=== PATIENT | female | born 1985 | race Caucasian/White ===

== ENCOUNTER → 2018-08-13 08:36 | Outpatient (CLI) | payer OTHER, SELFPAY ==
[2018-08-13 09:08] LABS: Influenza A and B by PCR Rapid Negative (Negative)
== END ==
PROVIDERS: Visit Provider Physician Assistant
DX: R68.89 Other general symptoms and signs (principal); J02.9 Acute pharyngitis, unspecified
CPT/HCPCS: 87070; 87400

== ENCOUNTER → 2021-12-20 07:18 | Outpatient (CLI) | payer OTHER, SELFPAY ==
[2021-12-20 08:56] LABS: HCG Quantitative /Beta subunit 40771 mIU/mL
== END ==
PROVIDERS: Referring Provider Nurse Practitioner Obstetrics & Gynecology; Visit Provider Nurse Practitioner Obstetrics & Gynecology
DX: N91.2 Amenorrhea, unspecified (principal)
CPT/HCPCS: 36415; 84702

== ENCOUNTER → 2021-12-22 13:47 | Outpatient (CLI) | payer OTHER, SELFPAY ==
--- NOTE | 2021-12-22 | DI.US.S_ITS ---
PROCEDURE: US OB <= 14 WEEKS FETUS INDICATIONS: Spotting complicating , first trimester OUTSIDE/PRIOR DATING DATA: Last menstrual period (LMP): October 28, 2021. LMP-based estimated date of delivery (CHERRI): August 04, 2022. First dating scan (date and location): December 22, 2021. Estimated date of delivery (CHERRI) from first dating scan: August 18, 2022. TECHNIQUE: Real-time scanning was performed of the fetus and maternal pelvic organs, with image documentation. Endovaginal scanning was also performed to better visualize the fetus and maternal ovaries. COMPARISON: None. FINDINGS: Embryo: There is a single living intrauterine gestation measuring approximately 5 weeks and 6 days estimated gestational age based off crown-rump length measurement of 0.3 cm. A normal yolk sac is visualized. No perigestational hemorrhage identified. Heart rate: 112 beats per minute Maternal organs: Ovaries demonstrate presence of a left corpus luteal cyst. IMPRESSION: Single living intrauterine gestation with estimated sonographic gestational age of approximately 5 weeks and 6 days based off crown-rump length measurement. Estimated dated delivery is approximately August 18, 2022. Recommend routine second trimester anatomic screening survey. We strive to produce accurate, complete, and clear reports of imaging services. To assist us in improving patient care, this report was composed using standard report templates and voice recognition software. Therefore, it may contain abnormal punctuation, insertions and/or omissions. Occasional wrong-word or sound-alike substitutions may occur. Though we review the report and make efforts to correct it, we do recommend that the report be read carefully in proper context to recognize any text inaccuracies. Dictated by: Robb Encinas M.D. on 12/22/2021 at 17:22 Approved by: Robb Encinas M.D. on 12/22/2021 at 17:25
== END ==
PROVIDERS: PCP Internal Medicine; Referring Provider Nurse Practitioner Obstetrics & Gynecology; Visit Provider Nurse Practitioner Obstetrics & Gynecology
DX: O26.851 Spotting complicating pregnancy, first trimester (principal); Z3A.01 Less than 8 weeks gestation of pregnancy
CPT/HCPCS: 76801; 76817

== ENCOUNTER → 2022-01-11 14:35 | Outpatient (CLI) | payer OTHER, SELFPAY ==
--- NOTE | 2022-01-11 14:36 | DI.US.S_ITS ---
PROCEDURE: US OB <= 14 WEEKS FETUS INDICATIONS: SPOTTING OUTSIDE/PRIOR DATING DATA: Last menstrual period (LMP): 10/28/2021 LMP-based estimated date of delivery (CHERRI): 08/04/2022. First dating scan (date and location): 12/22/2021 Estimated date of delivery (CHERRI) from first dating scan: 08/18/2021 TECHNIQUE: Real-time scanning was performed of the fetus and maternal pelvic organs, with image documentation. Endovaginal scanning was also performed to better visualize the fetus and maternal ovaries. COMPARISON: [facility], , OB <= 14 WEEKS FETUS, 12/22/2021, 15:08. FINDINGS: Embryo: Single intrauterine gestational sac is seen with pole and yolk sac seen. No heart rate is detected. [place]-rump length measures 3.9 cm. Estimated gestational age based on initial study is 8 weeks, 5 days. Estimated gestational age based on current study is 6 weeks, 5 days. Possible subchorionic hemorrhage measures 2.7 x 1.9 x 1.7 cm in size is seen. Maternal organs: Ovaries are visualized and are within normal limits. IMPRESSION: 1. No cardiac activity is detected with small fetus size suggestive of intrauterine demise. Findings were reported to referring clinician by operations and maintenance technican at the end of study at 3:45 p.m. On 01/11/2022. We strive to produce accurate, complete, and clear reports of imaging services. To assist us in improving patient care, this report was composed using standard report templates and voice recognition software. Therefore, it may contain abnormal punctuation, insertions and/or omissions. Occasional wrong-word or sound-alike substitutions may occur. Though we review the report and make efforts to correct it, we do recommend that the report be read carefully in proper context to recognize any text inaccuracies. Dictated by: Alf Christianson M.D. on 01/11/2022 at 16:17 Approved by: Alf Christianson M.D. on 01/11/2022 at 16:20
== END ==
PROVIDERS: PCP Internal Medicine; Referring Provider Nurse Practitioner Obstetrics & Gynecology; Visit Provider Nurse Practitioner Obstetrics & Gynecology
DX: O26.851 Spotting complicating pregnancy, first trimester (principal)
CPT/HCPCS: 76801; 76817

== ENCOUNTER → 2022-06-23 10:54 | Outpatient (CLI) | payer OTHER, SELFPAY ==
[2022-06-23 11:50] LABS: Influenza A - CEPHEID Flu A NEGATIVE (NEGATIVE); Influenza B - CEPHEID Flu B NEGATIVE (NEGATIVE); Respiratory Syncytial Virus Negative (Negative)
[2022-06-23 12:01] LABS: COVID-19 CEPHEID 4-PLEX PCR Negative (Negative)
== END ==
PROVIDERS: PCP Internal Medicine; Visit Provider Nurse Practitioner Family
DX: J06.9 Acute upper respiratory infection, unspecified (principal); R09.81 Nasal congestion; Z20.822 Contact with and (suspected) exposure to COVID-19
CPT/HCPCS: 0241U; 87070

== ENCOUNTER → 2022-08-02 16:14 | Outpatient (CLI) | payer OTHER, SELFPAY ==
--- NOTE | 2022-08-02 16:15 | DI.US.S_ITS ---
PROCEDURE: US OB >= 14 WEEKS FETUS INDICATIONS: 20WK ANATOMY SCAN OUTSIDE/PRIOR DATING DATA: Last menstrual period (LMP): 03/14/2022. LMP-based estimated date of delivery (CHERRI): 02/19/2023. First dating scan (date and location): 08/02/2022. Estimated date of delivery (CHERRI) from first dating scan: 12/15/2022. The calculations are made using the clinical CHERRI of 02/19/2023. TECHNIQUE: Real-time scanning was performed of the fetus, with image documentation and biometric measurements. COMPARISON: [facility], OB <= 14 WEEKS FETUS, 01/11/2022, 15:22. FINDINGS: General: A single living intrauterine gestation is present. Presentation: Vertex. Placenta: Placental position is anterior , without previa. Venous leak is incidentally noted. Amniotic fluid index: 17.8 cm, normal range is 5-24 cm. Single deepest vertical pocket is 5.1 cm. heart rate: 145 beats per minute. Maternal cervical canal: 4.4 cm long. Normal lower limit is 2.5 cm. biometrics: Biparietal diameter: 5.0 cm 21 weeks 1 day Head circumference: 18.7 cm 21 weeks 0 days Abdominal circumference: 15.5 cm 20 weeks 5 days Femur length: 3.2 cm 20 weeks 0 days Clinically estimated gestational age: 20 weeks 1 day Composite gestational age from present scan: 20 weeks 5 days Estimated weight and percentile: 354 g 63rd percentile Anatomic survey: Neuro: Ventricles are non-dilated at less than 10 mm. Cisterna magna is normal at 3-11 mm. Cerebellum is normal in size and morphology. Nuchal skin fold: Normal at less than 6 mm between 14-21 weeks gestational age. Face: Nose and lips, facial profile are normal. Spine: No evidence for spina bifida. Heart: 4-chambered heart is present, with normal ventricular outflow tracts. Diaphragm: Diaphragm is intact. Stomach: Left-sided stomach is present. Kidneys: No hydronephrosis. Normal is less than 5 mm in 2nd trimester, less than 7 mm in 3rd trimester. Cord: 3-vessel cord has orthotopic insertion. Bladder: Normal in size. Extremities: All 4 extremities identified. IMPRESSION: Single live intrauterine with gestational age of 20 weeks 1 day. Anatomy is within normal limits. We strive to produce accurate, complete, and clear reports of imaging services. To assist us in improving patient care, this report was composed using standard report templates and voice recognition software. Therefore, it may contain abnormal punctuation, insertions and/or omissions. Occasional wrong-word or sound-alike substitutions may occur. Though we review the report and make efforts to correct it, we do recommend that the report be read carefully in proper context to recognize any text inaccuracies. Dictated by: Lindsey Lizarraga M.D. on 08/03/2022 at 13:32 Approved by: Lindsey Lizarraga M.D. on 08/03/2022 at 13:34
== END ==
PROVIDERS: PCP Internal Medicine; Referring Provider Nurse Practitioner Obstetrics & Gynecology; Visit Provider Nurse Practitioner Obstetrics & Gynecology
DX: Z36.89 Encounter for other specified antenatal screening (principal); Z3A.20 20 weeks gestation of pregnancy
CPT/HCPCS: 76811

== ENCOUNTER → 2022-09-23 11:09 | Outpatient (CLI) | payer OTHER, SELFPAY ==
[2022-09-23 12:56] LABS: Hematocrit 34.5 % (36-46); Mean Corpuscular HGB Conc 34.8 % (30-36); Mean Corpuscular Hemoglobin 33.7 PG (26-34); Mean Corpuscular Volume 96.9 fL (80-100); Platelet Count 292 X10^3/uL (150-400); Red Blood Cell Count 3.56 X10^6/uL (4.0-5.2); Red Cell Distribution Width 13.9 % (11.6-14.8); White Blood Cell Count 8.7 X10^3/uL (4.5-11.0)
[2022-09-23 13:26] LABS: Glucose Tol Interpretation INTERPRETATION
[2022-09-23 14:34] LABS: Glucose 1 Hour 171 mg/dL (70-170)
[2022-09-23 14:37] LABS: Glucose Fasting 79 mg/dL (70-100)
[2022-09-23 15:14] LABS: Glucose 2 Hour 146 mg/dL (70-140)
== END ==
PROVIDERS: PCP Internal Medicine; Referring Provider Nurse Practitioner Obstetrics & Gynecology; Visit Provider Nurse Practitioner Obstetrics & Gynecology
DX: Z34.90 Encounter for supervision of normal pregnancy, unspecified, unspecified trimester (principal); Z13.1 Encounter for screening for diabetes mellitus; Z3A.26 26 weeks gestation of pregnancy
CPT/HCPCS: 36415; 82951; 82952; 85027

== ENCOUNTER 2022-12-28 07:24 | Inpatient (IN) | payer OTHER, SELFPAY ==
--- NOTE | 2022-12-28 07:35 | PM.OBHP.1 ---
OB HPI Date/Time Date of admission: 12/28/22 Date Patient Seen: 12/28/22 Time Patient Seen: 07:35 History of Present Condition Chief complaint: induction : 2 Para: 0 Estimated Date of Delivery: 12/19/22 Estimated Gestational Age (weeks): 41.2 Narrative: Linda Phan is a 37 year old female at 41w2d based on sure LMP and concordant with 12 week US here for post dates induction of labor. Lidna had a [place] balloon placed in clinic yesterday evening. Over night she was cramping and uncomfortable until 0345 when the balloon came out. No leaking of fluid or bleeding. She reports positive movement. She is not feeling any contractions at this time. Her Idris is very supportive at bedside. Uncomplicated care with CNMs established at 12 weeks gestation. Open to all interventions for pain management. Indications Indication for induction OB: post dates History of Present care: good care, initiated at week # (12), number of visits (12) and pounds weight gain (42) Dating criteria: LMP confirmed by 1st trimester US Ultrasounds: normal 1st trimester US, normal mid trimester US and other (normal NOE at 41wks) Obstetrical complications: none Medical complications: none Preadmission Labs Blood type: O (+) positive -: Antibody screen: negative, Cystic fibrosis screen: negative, GBS status: negative, HBsAG: negative, HIV: negative and RPR/VDLR: negative -: Chlamydia screen: not detected and Gonorrhea screen: not detected -: Rubella: immune and Varicella: not immune HCT: 34.5 HCAB: negative PAP: Normal Cell-free DNA: Negative Urine: Negative Narrative: 2hr gtt: 79/171/146 HbA1c: 5.1 Prior (ies) History: Hx of MAB x1 Evaluation Evaluation Baseline heart rate: 135 Variability: Moderate (11-25) monitor accelerations: Present Monitor Decelerations: Absent Uterine Contraction Intensity: Mild Status: Category l Dilation (cm): 5 Effacement (%): 75 Dilation: >/=5 cm Effacement: >/=80% station: -3 Position of cervix: posterior Consistency: soft Tsai score: 8 PFSH Medical History (Updated 12/28/22 @ 08:10 by Mallory Kaiser CNM) Extra digits Heart murmur Miscarriage Family History (Updated 12/28/22 @ 08:13 by Mallory Kaiser CNM) Aunt Cancer Mother Diabetes mellitus Thyroid disease Depression Grandfather Diabetes mellitus Grandmother Diabetes mellitus Liver disease Sister Thyroid disease Social History (Updated 12/28/22 @ 08:15 by Mallory Kaiser CNM) marital status: household members: spouse lives independently: Yes caregiver/support person: No housing: house education level: college occupational status: employed sexual history: monogamous with one male partner do you feel safe at home: Yes Smoking Status: Former smoker Tobacco: How many years used: 15 quit status: quit date established alcohol intake: former Meds Home Medications and Allergies Home Medications Medication Instructions Recorded Confirmed Type duloxetine 60 mg capsule,delayed 60 mg PO QDAY ##0 01/27/17 12/28/22 History release Allergies Allergy/AdvReac Type Severity Reaction Status Date / Time Penicillins [PENICILLINS] Allergy Unknown Verified 08/13/18 09:18 Review of Systems Review of Systems ROS: Yes All systems reviewed with the patient and are negative except as otherwise documented OB Exam Vital signs Blood Pressure: 122/82 Pulse Rate: 89 Respiratory Rate: 12 Temperature: 97.3 F Resp Effort & Inspection: normal respiratory effort and able to speak in complete sentences Auscultation: clear to auscultation bilaterally Cardio Rate: regular rate Rhythm: regular rhythm Heart Sounds: S1 normal and S2 normal Presentation: vertex Objective Labs 12/28/22 08:00 Assessment and Plan Assessment and Plan Assessment and Plan narrative: A: Late term nullipara Favorable cervix GBS prophylaxis not indicated FHR Cat I P: Admit for IOL, routine admin orders Start titration of pitocin per protocol FHR by continuous monitoring Epidural when requested Reassess in 4 hours or sooner, PRN
[2022-12-28 08:21] VITALS: BP 122/82; PULSE 89; RESP 12; TEMP 36.3
[2022-12-28 08:21] LABS: Add Manual Diff / Slide Review NO; Basophils Absolute Auto 0 /uL (0-100); Basophils Percent Auto 0.6 % (0-2); Eosinophils Absolute Auto 100 /uL (0-450); Hematocrit 37.3 % (36-46); Hemoglobin 13.2 g/dL (12.0-16.0); Lymphocytes Absolute Auto 1900 /uL (1100-4500); Lymphocytes Percent Auto 25.3 % (25-40); Mean Corpuscular HGB Conc 35.5 % (30-36); Mean Corpuscular Hemoglobin 34.4 PG (26-34); Mean Corpuscular Volume 96.9 fL (80-100); Monocytes Absolute Auto 700 /uL (0-900); Monocytes Percent Auto 9.4 % (3-14); Neutrophils Absolute Auto 4900 /uL (1500-7000); Neutrophils Percent Auto 63.7 % (50-75); Platelet Count 187 X10^3/uL (150-400); Red Blood Cell Count 3.85 X10^6/uL (4.0-5.2); Red Cell Distribution Width 13.7 % (11.6-14.8); White Blood Cell Count 7.7 X10^3/uL (4.5-11.0)
[2022-12-28] MEDS: OXYTOCIN PREMIX 30 UNIT/500 ML PLAST..BAG IV (08:33)
[2022-12-28] MEDS: LACTATED RINGERS 1,000 ML 100 ML IV ×2 (08:34→15:45)
[2022-12-28 08:52] VITALS: BP 126/77
--- NOTE | 2022-12-28 12:12 | PM.OBPNLAB ---
Date/Time Date Patient Seen: 12/28/22 Time Patient Seen: 12:12 Pain Control Pain control: tolerating well (sitting on ball) Comments: Linda reports that contractions have been more painful and causing nausea for approximately an hour. Says that she has been crampy since about 0340 when she got up to use the bathroom and pulled her sanchez bulb out. Didn't get much sleep overnight; tried to nap earlier with no success. Baby moving well. Has seen a small amount of blood when she voids. Just finished eating lunch. Pelvic Exam Dilation (cm): 4 Effacement (%): 90 station: -2 Amniotic membrane status: Intact Contractions Contractions on admission: irregular Monitor mode: External Pitocin rate (mU/min): 14 Contraction frequency (min): 3 Contraction duration (min): 80 Contraction intensity: Moderate Status status: Category ll Heart Rate Baseline: 130 Monitor Accelerations: Present Monitor Decelerations: Early, Late and Variable (non recurrent) Monitor Variability: Moderate Assessment and Plan Assessment: induction ongoing Plan: continuous present management Comments: in early labor, IOL for post dates GBS negative Membranes intact FHR Cat 2 Plan: Attempted AROM. Unable to complete. Continue pitocin induction per protocol. Continuous monitoring. Reviewed plan of care with pt and partner.
--- NOTE | 2022-12-28 14:44 | PM.AN.REGBLK ---
Regional [facility] <Sonu Davis MD - Last Filed: 12/28/22 14:48> Pre-procedure Procedure: Continuous Lumbar Epidural for L&D PMH/ROS narrative: PSH/Anesthesia history narrative: None Exam narrative: WNL Labs: Hct 37.3 % (36-46) 12/28/22 08:00 Plt Count 187 X10^3/uL (150-400) 12/28/22 08:00 Medications: Current Medications Generic Name Dose Route Start Last Admin Trade Name Freq PRN Reason Stop Dose Admin Calcium Carbonate 1,000 mg 12/28/22 07:30 Calcium Carbonate 500 Mg Tab PO Q4HR PRN Dyspepsia Carboprost Tromethamine 250 mcg 12/28/22 07:30 Carboprost 250 Mcg/Ml Ampul IM Q90M PRN Bleeding Oxytocin/Lactated Ringer's 30 unit in 500 mls @ 200 mls/hr 12/28/22 07:30 Oxytocin Premix IV CONT PRN Bleeding Protocol Tranexamic Acid 1,000 mg/ 100 mls @ 200 mls/hr 12/28/22 07:30 Sodium Chloride IV NOW PRN Bleeding Oxytocin/Lactated Ringer's 30 unit in 500 mls @ 2 mls/hr 12/28/22 07:30 12/28/22 08:33 Oxytocin Premix IV 2 milliunit/min TITRATE ANANDA 2 mls/hr Administration Protocol 2 MILLIUNIT/MIN Lactated Ringer's 1,000 mls @ 100 mls/hr 12/28/22 07:30 12/28/22 08:34 Lactated Ringers IV 100 mls/hr CONT ANANDA Administration Lidocaine HCl 20 ml 12/28/22 07:30 Lidocaine 1% 20 Ml INJ INTRA-OP PRN Post Delivery Methylergonovine Maleate 0.2 mg 12/28/22 07:30 Methylergonovine 0.2 Mg Tablet PO Q6HR PRN Heavy Bleeding Methylergonovine Maleate 0.2 mg 12/28/22 07:30 Methylergonovine 0.2 Mg/Ml Vial IM NOW PRN Bleeding Misoprostol 800 mcg 12/28/22 07:30 Misoprostol 200 Mcg Tablet MN NOW PRN Bleeding Misoprostol 400 mcg 12/28/22 07:30 Misoprostol 200 Mcg Tablet SL NOW PRN Bleeding Naloxone HCl 0.2 mg 12/28/22 07:30 Naloxone 0.4 Mg/Ml Vial IV Q2MIN PRN Opiate Reversal Ondansetron HCl 4 mg 12/28/22 07:30 Ondansetron 4 Mg/2 Ml Inj IV Q4HR PRN Nausea And Vomiting Oxytocin 10 unit 12/28/22 07:30 Oxytocin 10 Unit/Ml Vial IM NOW PRN Bleeding Allergies: Allergies Allergy/AdvReac Type Severity Reaction Status Date / Time Penicillins [PENICILLINS] Allergy Unknown Verified 08/13/18 09:18 Procedure Insertion date: 12/28/22 Insertion time: 14:30 Prep/Local: betadine x3 and 1% lidocaine Interspace: L3-4 Patient position: sitting Needle: 18 gauge Hustead Loss of resistance with: air VONDA at (cm): 8 Catheter placed at SKIN (cm): 12 Catheter in SPACE (cm): 4 Initial Medications TEST DOSE time: 14:32 BOLUS DOSE time: 14:35 BOLUS DOSE (mL): 10 BOLUS DOSE med: 0.25% bupivacaine Infusion INFUSION: 0.125% bupivacaine and with fentanyl 2 mcg/mL Initial rate (mL/hr): 12 <Babatunde Sneed CRNA - Last Filed: 12/29/22 13:30> Infusion Subsequent interventions: Delivered at 0813 12/29/2022. Epidural withdrawn by RN Post-procedure Post-procedure Anesthesia Assessment: Yes CV function: HR/BP stable, Yes Resp function: RR/sat/airway adequate, Yes Post-op hydration adequate, Yes Pain control adequate, Yes Nausea & vomiting absent, Yes Temperature > 36 C and Yes Mental status appropriate
[2022-12-28] MEDS: FENT 2MCG/ML BUPIV 0.125% EPI 200 MCG/100 ML PLAST..BAG 12 MCG EPIDURAL ×2 (15:00→19:45)
--- NOTE | 2022-12-28 17:57 | PM.OBPNLAB ---
Date/Time Date Patient Seen: 12/28/22 Time Patient Seen: 17:58 Pain Control Pain control: epidural Comments: Linda's ctx increased in intensity at 1300. SROM at 1400 for clear fluid, received epidural at 1430, now resting comfortably, partner remains supportive at bedside. VS: BP -100/63, P 71, Sp02 94%, T -98.4 Pelvic Exam Dilation (cm): 5 Effacement (%): 90 station: -2 Amniotic membrane status: Leaking Comments: Bloody show noted, clear fluid Contractions Monitor mode: External Pitocin rate (mU/min): 18 Contraction frequency (min): 2 Contraction duration (min): 1 Contraction pattern: Regular Contraction intensity: Moderate Status status: Category ll Heart Rate Baseline: 130 Monitor Accelerations: Present Monitor Decelerations: Early (position dependent), Late (rare) and Variable (rare) Monitor Variability: Moderate Comments: overall reassuring Assessment and Plan Assessment: induction ongoing Plan: continuous present management Comments: Continue pitocin per protocol, notified RN may titrate above 20, to notify provider if Pitocin at 36mu. Encourage frequent position changes. Reassess in 4 hours or sooner PRN. Will continue IUPC if minimal change at next exam.
--- NOTE | 2022-12-28 22:00 | PM.OBPNLAB ---
Date/Time Date Patient Seen: 12/28/22 Time Patient Seen: 22:00 Pain Control Pain control: epidural Comments: Resting comfortably for last four hours, feeling increased pressure in lower anterior abdomen with contractions, pain well controlled with use of PCEA. Utilizing peanut ball for position changes. Supportive partner at bedside. VS: BP 138/88, P - 78, Sp02 - 96% T - 36.6C Pelvic Exam Dilation (cm): 7 Effacement (%): 90 station: -1 Amniotic membrane status: Leaking Comments: Increased bloody show Contractions Monitor mode: External Pitocin rate (mU/min): 24 Contraction frequency (min): 2 Contraction pattern: Regular Contraction intensity: Strong/Firm Status status: Category ll Heart Rate Baseline: 135 Monitor Accelerations: Present Monitor Decelerations: Early and Variable Monitor Variability: Moderate Comments: Reassuring overall Assessment and Plan Assessment: active labor Plan: continuous present management Comments: Continue Pitocin per protocol, encourage frequent position changes. Reassess in 4 hrs or sooner PRN. Anticipate second stage soon.
[2022-12-29] MEDS: LACTATED RINGERS 1,000 ML 100 ML IV ×2 (00:08→09:02)
--- NOTE | 2022-12-29 02:11 | PM.OBPNLAB ---
Date/Time Date Patient Seen: 12/29/22 Time Patient Seen: 02:00 Pain Control Pain control: epidural Comments: Bolus requested after 0000, now comfortable resting in low fowlers. Supportive partner at bedside. VS: BP 124/79, P - 82, Sp02- 93%, T - 36.4C Pelvic Exam Dilation (cm): 9 Effacement (%): 90 station: -1 Amniotic membrane status: Leaking Comments: Head deflexed, anterior fontanelle palpated. Contractions Monitor mode: External Pitocin rate (mU/min): 24 Contraction frequency (min): 2 Contraction duration (min): 60 Contraction pattern: Regular Contraction intensity: Strong/Firm Status status: Category ll Heart Rate Baseline: 145 Monitor Accelerations: Present Monitor Decelerations: Early (position dependent) and Variable (position dependent) Monitor Variability: Moderate Assessment and Plan Assessment: active labor and other ( malpresentation (deflexed) ) Plan: continuous present management Comments: Continue Pitocin per protocol. In hands and knees now, continue to change position frequently, consider side lying release and/or exaggerated runners. Recommend hip sifting. Reassess at 0600 or sooner PRN.
[2022-12-29] MEDS: FENT 2MCG/ML BUPIV 0.125% EPI 200 MCG/100 ML PLAST..BAG 12 MCG EPIDURAL (02:25)
--- NOTE | 2022-12-29 06:00 | PM.OBPNLAB ---
Date/Time Date Patient Seen: 12/29/22 Time Patient Seen: 06:00 Pain Control Comments: Pain well controlled with epidural, resting comfortably, was able to nap. VS: 114/77, P - 96, Sp02 - 93%, T - 37.1C Pelvic Exam Dilation (cm): 10 Effacement (%): 100 station: 0 Amniotic membrane status: Leaking Contractions Monitor mode: External Pitocin rate (mU/min): 14 Contraction frequency (min): 3 Contraction pattern: Regular Contraction intensity: Strong/Firm Status status: Category ll Heart Rate Baseline: 135 Monitor Accelerations: Present Monitor Decelerations: Early, Late (occasional), Prolonged (x1) and Variable Monitor Variability: Moderate Assessment and Plan Assessment: active labor Plan: continuous present management Comments: Completely dilated, begin second stage. Anticipate vaginal delivery. Support effective maternal pushing efforts with emotional support, position changes and coaching.
[2022-12-29] MEDS: OXYTOCIN PREMIX 30 UNIT/500 ML PLAST..BAG 200 UNIT IV (08:12)
[2022-12-29] MEDS: TRANEXAMIC ACID 1,000 MG in SODIUM CHLORIDE 0.9% 100 ML 200 MG IV (08:57)
[2022-12-29] MEDS: METHYLERGONOVINE 0.2 MG/ML VIAL IM (09:00)
--- NOTE | 2022-12-29 09:02 | PM.CN ---
History of Present Illness Consult details Date Patient Seen: 12/29/22 Time Patient Seen: 09:02 Chief complaint: Retained placenta Reason for consult: Retained placenta Requesting provider: Mallory Kaiser Narrative: Patient was admitted for postdates induction. She had an epidural catheter for pain control. She had a spontaneous vaginal delivery. I was called to consult for retained placenta after greater than 30 minutes without placenta separation. Approximally 500 cc blood loss so far. Meds Home Medications and Allergies Home Medications Medication Instructions Recorded Confirmed Type duloxetine 60 mg capsule,delayed 60 mg PO QDAY ##0 01/27/17 12/28/22 History release Allergies Allergy/AdvReac Type Severity Reaction Status Date / Time Penicillins [PENICILLINS] Allergy Unknown Verified 08/13/18 09:18 Exam Narrative Exam Narrative: I was gowned and gloved. The umbilical cord present outside of the vagina. Placing a hand into the vagina the majority of the placenta appeared to be in the vagina. Gentle manipulation around the placenta revealed 1 small area of attachment that was gently teased away from the uterus. The placenta then delivered. There was a small amount retained membranes that were grasped with a ring forceps and removed. Patient had received Pitocin and was starting to get a TXA infusion. She was also given Methergine IM. Bleeding appeared to be under control. Objective Labs 12/28/22 08:00 Labs: Laboratory Results - last 24 hr 12/28/22 08:00 Blood Type O Positive Antibody Screen Negative [facility] Medical History (Updated 12/29/22 @ 10:03 by Anahi Borjas MD) Extra digits Heart murmur Miscarriage Family History (Updated 12/28/22 @ 08:13 by Mallory Kaiser CNM) Aunt Cancer Mother Diabetes mellitus Thyroid disease Depression Grandfather Diabetes mellitus Grandmother Diabetes mellitus Liver disease Sister Thyroid disease Social History marital status: household members: spouse lives independently: Yes caregiver/support person: No housing: house education level: college occupational status: employed sexual history: monogamous with one male partner Safety do you feel safe at home: Yes Tobacco & Substance Use Smoking Status: Former smoker Tobacco: How many years used: 15 quit status: quit date established alcohol intake: former Assessment & Plan Assessment and plan (1) Retained placenta parts or membranes, : Status: Acute Assessment & Plan narrative: Patient with retained placenta . Placenta delivered with manual removal. Patient will be monitored for bleeding and retained products. Time Spent With Patient Time with patient: less than 30 minutes
--- NOTE | 2022-12-29 09:41 | PM.OBPRVD ---
Events: Labor Induction Labor & Delivery Delivery date: 12/29/22 Intrapartal Events: Deceleration Cervical ripening method: per [place] bulb protocol Induction method: per pitocin protocol Delivery augmentation: pitocin Delivery monitor: external FHT and external uterine Route of delivery: Episiotomy description: None L&D Laceration Description: Superficial (L labial) Quantitative Blood Loss: 800 Anesthesia Type: Epidural Narrative: Pushing initiated at C/C/+1. Steady descent of vertex with coaching, encouragement, position changes and strong maternal efforts. Category II FHR throughout second stage and RT called to standby at a moderate crown. NSVB of a vigorous baby boy in direct OA position. There was no nuchal cord and the shoulder delivered easily without additional maneuvers. FOB, SNM and CNM with hands on at delivery. was lifted to maternal abdomen by FOB where drying and stimulation occurred. Apgars 8/9 and RT was excused. 30 units of pitocin in 500mL LR was started at 250mL/hr for AMTSL. After cessation of pulsation, the cord was double clamped by CNM and cut by FOB. Cord blood sample was collected. Pitocin was increased to a bolus and TXA was ordered at the 20 minute nilda for occasional gushes of brisk bleeding. Gentle cord traction over a 35 minute period did not result in separation of pulsation. [facility]/ was called for consultation for manual removal of retained placenta. She arrived within 5 minutes and successfully removed the placenta, manually, under adequate epidural anesthesia. See OB documentation. Methergine 0.2mg IM was given for additional brisk bleeding. Fundus was firm and bleeding decreasing. Inspection revealed a superficial left labial laceration with no indication for repair. QBL 800mL. Both mother and baby stable and skin to skin as I left the room. [place] Baby 1: Infant gender: Male Presentation: vertex Placenta delivery description: Manual Removal (By Dr. Borjas) score (1 min): 8 score (5 min): 9 weight: 3.911 kg Plan for aftercare: Routine care and Other (CBC 8 hrs post delivery and antibiotics for manual removal of placenta)
[2022-12-29] MEDS: KETOROLAC 30 MG/ML VIAL IV (10:06)
[2022-12-29] MEDS: CEFAZOLIN 2 GM/100 ML PREMIX 100 ML IV (10:06)
[2022-12-29] MEDS: DERMOPLAST SPRAY 20% 60 ML 1 SPRAY TOP (10:06)
[2022-12-29 17:14] LABS: Add Manual Diff / Slide Review NO; Basophils Absolute Auto 100 /uL (0-100); Basophils Percent Auto 0.4 % (0-2); Eosinophils Absolute Auto 100 /uL (0-450); Eosinophils Percent Auto 0.4 % (2-4); Hemoglobin 11.6 g/dL (12.0-16.0); Lymphocytes Absolute Auto 1800 /uL (1100-4500); Lymphocytes Percent Auto 10.7 % (25-40); Mean Corpuscular Hemoglobin 34.4 PG (26-34); Mean Corpuscular Volume 98.1 fL (80-100); Monocytes Absolute Auto 1000 /uL (0-900); Neutrophils Absolute Auto 13900 /uL (1500-7000); Neutrophils Percent Auto 82.5 % (50-75); Platelet Count 172 X10^3/uL (150-400); Red Blood Cell Count 3.36 X10^6/uL (4.0-5.2); Red Cell Distribution Width 13.8 % (11.6-14.8); White Blood Cell Count 16.9 X10^3/uL (4.5-11.0)
[2022-12-29 17:24] LABS: Aspartate Aminotransferase 43 IU/L (14-36); BUN Creatinine Ratio 19.5 (6-22); Blood Urea Nitrogen 16 mg/dL (7-17); Estimated Glomerular Filt Rate > 60 mL/min (>60); Uric Acid 6.7 mg/dL (2.5-6.2)
--- NOTE | 2022-12-30 10:38 | P.DS_ITS ---
Discharge Providers Provider Date of admission: 12/28/22 07:24 Discharge Date: 12/30/22 Primary care physician: JU Carlson Consults: 12/28/22 07:30 Consult to Anesthesiology Urgent Comment: Consulting Provider: Anesthesiologist Reason for consultation: Epidural Has provider been notified: No 12/30/22 08:34 Consult to Signalling And Communications Engineer Routine Comment: Discharge provider: Mallory Kaiser CNM Summary Hospital Course Date Patient Seen: 12/30/22 Time Patient Seen: 10:39 Diagnoses: O80, O73.0 Hospital Course: PPD1: Stable s/p NSVB with manual removal of retained placenta and no lacerations. Received one dose of prophylactic IV antibiotics overnight. Voiding, ambulating and independently. Tolerating a general diet. Pain is well controlled with PO medication. Peripartum Data Delivery Method: Natural Vaginal Laceration Description: Superficial Episiotomy description: None Procedures: manual removal of retained placenta ([id number]) complications: retained placenta [place] 1: Gender: Male Disposition of : home Discharge Diagnosis (1) Retained placenta parts or membranes, : Status: Acute Problem Details: no complications after procedure (2) Encounter for full-term uncomplicated delivery: Status: Acute Problem Details: Routine course (3) Gestational hypertension without significant proteinuria, : Status: Acute Problem Details: reviewed warning sx with patient and scheduled 5 day BP check Status at Discharge Cognitive/behavioral status at discharge: oriented and calm Functional status at discharge: independent ambulation Overall status at discharge: patient is progressing back to baseline Time Spent with Patient Time attestation: Total time spent providing and/or coordinating discharge services: Objective Labs 12/29/22 17:05 12/29/22 17:05 Labs: Laboratory Results - last 24 hr 12/29/22 12/29/22 17:05 17:05 WBC 16.9 H D RBC 3.36 L Hgb 11.6 L Hct 33.0 L MCV 98.1 MCH 34.4 H MCHC 35.0 RDW 13.8 Plt Count 172 Neut % (Auto) 82.5 H Lymph % (Auto) 10.7 L Rogers % (Auto) 6.0 Eos % (Auto) 0.4 L Baso % (Auto) 0.4 Neut # (Auto) 71376 H Lymph # (Auto) 1800 Rogers # (Auto) 1000 H Eos # (Auto) 100 Baso # (Auto) 100 BUN 16 Creatinine 0.82 Estimated GFR > 60 BUN/Creatinine Ratio 19.5 Uric Acid 6.7 H AST 43 H Exam Vital Signs (past 8 hours): BP 128/87, HR 82, RR 16, T 98.9F Other: Fundus firm @ u-1, lochia light without clots. Perineum intact with minimal edema. Discharge Plan Discharge Plan Patient Disposition: Home Discharge orders & Medications Prescriptions: New ibuprofen 600 mg Tablet 600 mg PO Q6HR PRN (Reason: Pain, Mild (1-3)) 14 Days Qty: 60 0RF Continued duloxetine 60 MG capsule,delayed release(DR/EC) 60 mg PO QDAY Qty: 0 Follow up/Referrals: Iwona Emanuel ARNP [Primary Care Provider] - Visit Report/Discharge Packet Stand Alone Forms: Patient Portal/API, Stroke Signs & Symptoms Discharge Data Primary Care Provider: Iwona Emanuel
[2022-12-30 16:45] VITALS: BP 119/88; PULSE 88; RESP 14; TEMP 37.1
--- NOTE | 2023-01-02 19:06 | PM.AN.REGBLK ---
Regional [facility] Pre-procedure Labs: Hct 33.0 % (36-46) L 12/29/22 17:05 Plt Count 172 X10^3/uL (150-400) 12/29/22 17:05 Allergies: Allergies Allergy/AdvReac Type Severity Reaction Status Date / Time Penicillins [PENICILLINS] Allergy Unknown Verified 08/13/18 09:18 Procedure Insertion date: 12/28/22 Post-procedure Anesthesia time START: 14:26 Anesthesia time END: 08:20 (on 12/29)
== END 2022-12-30 17:45 | disposition home or self-care (01) | DRG 807 ==
PROVIDERS: Admitting Provider Nurse Practitioner Obstetrics & Gynecology; PCP Internal Medicine; Referring Provider Nurse Practitioner Obstetrics & Gynecology; Visit Provider Nurse Practitioner Obstetrics & Gynecology
DX: O48.0 Post-term pregnancy (principal); Z37.0 Single live birth; O73.0 Retained placenta without hemorrhage; O76 Abnormality in fetal heart rate and rhythm complicating labor and delivery; Z3A.41 41 weeks gestation of pregnancy; O13.4 Gestational [pregnancy-induced] hypertension without significant proteinuria, complicating childbirth
CPT/HCPCS: 36415; 59050; 59414; 84450; 84550; 85025; 86850; 86900; 86901; G0379; J0690; J1885; J2210; J2590

== ENCOUNTER → 2023-01-04 12:39 | Outpatient (ROUT) | payer OTHER, SELFPAY ==
[2023-01-04 12:46] LABS: Add Manual Diff / Slide Review NO; Basophils Absolute Auto 0 /uL (0-100); Basophils Percent Auto 0.4 % (0-2); Eosinophils Absolute Auto 100 /uL (0-450); Eosinophils Percent Auto 0.8 % (2-4); Hematocrit 36.1 % (36-46); Hemoglobin 12.1 g/dL (12.0-16.0); Lymphocytes Absolute Auto 900 /uL (1100-4500); Lymphocytes Percent Auto 12.3 % (25-40); Mean Corpuscular HGB Conc 33.6 % (30-36); Mean Corpuscular Hemoglobin 33.7 PG (26-34); Mean Corpuscular Volume 100.1 fL (80-100); Monocytes Absolute Auto 700 /uL (0-900); Monocytes Percent Auto 9.9 % (3-14); Neutrophils Absolute Auto 5700 /uL (1500-7000); Neutrophils Percent Auto 76.6 % (50-75); Platelet Count 354 X10^3/uL (150-400); Red Blood Cell Count 3.61 X10^6/uL (4.0-5.2); Red Cell Distribution Width 14.1 % (11.6-14.8); White Blood Cell Count 7.5 X10^3/uL (4.5-11.0)
[2023-01-04 13:15] LABS: Aspartate Aminotransferase 63 IU/L (14-36); BUN Creatinine Ratio 19.6 (6-22); Blood Urea Nitrogen 11 mg/dL (7-17); Estimated Glomerular Filt Rate > 60 mL/min (>60); Uric Acid 5.1 mg/dL (2.5-6.2)
== END ==
PROVIDERS: PCP Internal Medicine; Visit Provider Nurse Practitioner Obstetrics & Gynecology
DX: Z34.93 Encounter for supervision of normal pregnancy, unspecified, third trimester (principal); R03.0 Elevated blood-pressure reading, without diagnosis of hypertension
CPT/HCPCS: 84450; 84550; 85025